=== PATIENT | female | born 1995 | race Hispanic/Latino ===

== ENCOUNTER 2021-01-07 20:52 | Inpatient (IN) | payer MEDICAID ==
[2021-01-07] MEDS ORDERED: LIDOCAINE (2%) 20 MG/1 ML VIAL 20 ML MDV INFILTRATI ONE (22:11)
[2021-01-07] MEDS ORDERED: MINERAL OIL 30 ML ORAL LIQD PO PRN (22:11)
[2021-01-07] MEDS ORDERED: ePHEDrine SULFATE 50 MG/1 ML INJ IV PRN (22:11)
[2021-01-07] MEDS ORDERED: TERBUTALINE 1 MG/1 ML INJ SUB-Q PRN (22:11)
[2021-01-07] MEDS ORDERED: ONDANSETRON 4 MG/2 ML INJ IV PRN (22:11)
[2021-01-07] MEDS ORDERED: BUTORPHANOL 2 MG/1 ML INJ IV PRN ×2 (22:11)
[2021-01-07 22:25] LABS: Hematocrit 28.8 % (30.3-42.9); Hemoglobin 9.2 gm/dl (10.1-14.3); Mean Corpuscular HGB Conc 32 % (30-34); Platelet Count 323 K/mm3 (140-440); Red Blood Count 4.29 M/mm3 (3.65-5.03); Red Cell Distribution Width 16.4 % (13.2-15.2)
[2021-01-07 22:28] LABS: Mean Corpuscular Volume 67 fl (79-97)
[2021-01-07] MEDS ORDERED: OXYTOCIN DRIP 30 UNITS/500 ML BAG IV SCH (23:00)
[2021-01-07] MEDS: LACTATED RINGERS 1,000 ML IV SCH (23:28)
[2021-01-07] MEDS ORDERED: fentaNYL-BUPIV 2 MCG/ML-0.125% 200 MCG/100 ML BAG EPIDURAL SCH (23:45)
[2021-01-07] MEDS ORDERED: NALOXONE 2 MG/2 ML INJ IV PRN (23:52)
[2021-01-07] MEDS ORDERED: diphenhydrAMINE 50 MG/ML VIAL IV PRN (23:52)
[2021-01-07] MEDS ORDERED: NalbUPHINE 10 MG/1 ML INJ IV PRN (23:52)
--- NOTE | 2021-01-08 00:17 | Anesthesia Consultation ---
Anesthesia Consult and Med Hx Date of service: 01/08/21 - Airway Anesthetic Teeth Evaluation: Chipped ROM Head & Neck: Adequate Mental/Hyoid Distance: Adequate Mallampati Class: Class I Intubation Access Assessment: Good - Pulmonary Exam CTA: Yes - Cardiac Exam Cardiac Exam: RRR - Pre-Operative Health Status ASA Pre-Surgery Classification: ASA2 Proposed Anesthetic Plan: Epidural - Pulmonary Hx Smoking: Yes Hx Asthma: Yes COPD: Yes Hx Pneumonia: No Hx Sleep Apnea: No - Cardiovascular System Hx Hypertension: No Hx Heart Attack/AMI: No Hx Angina: No - Central Nervous System Hx Psychiatric Problems: Yes (anxiety, depression, bipolar) - Gastrointestinal Hx Gastroesophageal Reflux Disease: No - Endocrine Hx End Stage Renal Disease: No Hx Insulin Dependent Diabetes: No Hx Non-Insulin Dependent Diabetes: No - Other Systems Hx Alcohol Use: No
--- NOTE | 2021-01-08 00:18 | Progress Note ---
Labor Epidural - Labor Epidural Start Time: 00:01 Stop Time: 00:11 Performed by:: CAROLINE SIERRA Procedure: Patient is requesting epidural for labor and pain. H&P, labs were reviewed. Patient IDed, H&P reviewed, all questions and concerns were answered, and consent was signed. Timeout was performed at bedside. Patient in sitting position. Sterile prep and drape was performed. 3ml of 1% lidocaine skin wheal at L[3]- L [4]. 18-gauge Jewel epidural needle was advanced to loss of resistance with air technique 4cm. Negative CSF negative blood. Epidural catheter advanced to [9] centimeters. [negative] Aspiration [negative] test dose. Sterile dressing applied. Patient tolerated procedure.
[2021-01-08] MEDS: LACTATED RINGERS 1,000 ML IV SCH (00:34)
[2021-01-08] MEDS ORDERED: LIDOCAINE MPF (2%) 20 MG/1 ML VIAL 5 ML ONE (02:09)
[2021-01-08] MEDS ORDERED: LIDOCAINE (2%) 20 MG/1 ML VIAL 20 ML MDV INFILTRATI ONE (02:12)
--- NOTE | 2021-01-08 02:59 | History and Physical Report ---
History of Present Illness Date of examination: 01/08/21 Date of admission: 01/07/21 22:11 Chief complaint: I am having contractions History of present illness: Patient is a 25-year-old 1 para 0 who presents to labor and delivery with complaint of contractions every 5 minutes. She was found to be 5 cm on presentation and decision was made to keep an admit. Patient's course has been complicated by recent moved to [place] with some initial care in [facility] however all records were retrieved. Patient has a history of hepatitis C and has been followed by [facility] for the same. She is GBS negative. 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 Family/Genetic History: none Social history: single - Obstetrical History Expected Date of Delivery: 01/13/21 Actual Gestation: 39 Week(s) 2 Day(s) : 2 Para: 0 Number of Living Children: 0 Medications and Allergies Allergies Allergy/AdvReac Type Severity Reaction Status Date / Time ciprofloxacin Allergy Hives Verified 01/07/21 22:00 Active Meds: Active Medications Butorphanol Tartrate (Butorphanol 2 Mg/1 Ml Inj) 2 mg IV Q2H PRN PRN Reason: Pain , Severe (7-10) Butorphanol Tartrate (Butorphanol 2 Mg/1 Ml Inj) 1 mg IV Q2H PRN PRN Reason: Pain, Moderate(4-6) LABOR PAIN Diphenhydramine HCl (Diphenhydramine 50 Mg/Ml Vial) 12.5 mg IV Q2H PRN PRN Reason: Itching Ephedrine Sulfate (Ephedrine Sulfate 50 Mg/1 Ml Inj) 10 mg IV Q2M PRN PRN Reason: Hypotension Lactated Ringer's (Lactated Ringers) 1,000 mls @ 125 mls/hr IV DIRECT ANTONY Last Admin: 01/08/21 00:34 Dose: 125 mls/hr Documented by: Oxytocin/Sodium Chloride (Pitocin/Ns 30 Unit/500ml) 30 units in 500 mls @ 40 mls/hr IV TITR ANTONY; Protocol Fentanyl/Bupivacaine/Sodium Chlor (Fentanyl-Bupiv 2 Mcg/Ml-0.125%) 200 mcg in 100 mls @ 12 mls/hr EPIDURAL TITR ANTONY; Protocol Last Admin: 01/08/21 00:31 Dose: 12 mls/hr Documented by: Mineral Oil (Mineral Oil 30 Ml Oral Liqd) 30 ml PO QHS PRN PRN Reason: Constipation Nalbuphine HCl (Nalbuphine 10 Mg/1 Ml Inj) 2.5 mg IV Q2H PRN PRN Reason: Itching Naloxone HCl (Naloxone 2 Mg/2 Ml Inj) 0.2 mg IV Q5M PRN PRN Reason: Respiratory sedation Ondansetron HCl (Ondansetron 4 Mg/2 Ml Inj) 4 mg IV Q8H PRN PRN Reason: Nausea And Vomiting Terbutaline Sulfate (Terbutaline 1 Mg/1 Ml Inj) 0.25 mg SUB-Q ONCE PRN PRN Reason: Hyperstimulation/Hypertonicity Review of Systems All systems: negative Eyes: deferred Ears, nose, mouth and throat: deferred Genitourinary: pelvic pain, contractions - Vital Signs Vital signs: Vital Signs Pulse BP 92 H 122/76 01/07/21 21:16 01/07/21 21:16 Temp Pulse Resp BP Pulse Ox 97.7 F 86 20 119/65 98 01/07/21 23:26 01/08/21 02:44 01/07/21 23:26 01/08/21 02:40 01/08/21 02:44 - Physical Exam Breasts: Cardiovascular: Regular rate, Normal S1, Normal S2 Lungs: Positive: Clear to auscultation, Normal air movement Abdomen: Positive: normal appearance, soft, normal bowel sounds. Negative: distention, tenderness Genitourinary (Female): Positive: normal external genitalia, normal perenium Vulva: both: normal Vagina: Positive: normal moisture. Negative: discharge Cervix: Negative: lesion, discharge Uterus: Positive: normal size, normal contour Adnexa: both: normal Anus/Rectum: Positive: normal perianal skin, heme negative. Negative: rectal mass, hemorrhoids Extremities: Deep Tendon Reflex Grade: Normal +2 - Obstetrical FHR: auscultation normal Cervical Dilatation: 5 Cervical Effacement Percentage: 90 station: -2 Uterine Contraction Pattern: Regular Uterine Tone Measurement Phase: Contraction Uterine Contraction Intensity: Strong/Firm Results Result Diagrams: 01/07/21 21:45 Abnormal lab results 01/07/21 Range/Units 21:45 WBC 11.3 H (4.5-11.0) K/mm3 Hgb 9.2 L (10.1-14.3) gm/dl Hct 28.8 L (30.3-42.9) % MCV 67 L (79-97) fl MCH 22 L (28-32) pg RDW 16.4 H (13.2-15.2) % All other labs normal. Assessment and Plan IUP at 39-2/7 weeks in active labor. Patient is GBS negative. Overall admit for labor. Patient had epidural when ready. Anticipate .
--- NOTE | 2021-01-08 03:02 | Procedure Note ---
OB Delivery Note - Delivery Date of Delivery: 01/08/21 Surgeon: MICHELA BLUM Estimated blood loss: 200cc - Vaginal Delivery presentation: vertex Delivery position: OA Intrapartum events: none Delivery induction: none Delivery augmentation: rupture of membranes Delivery monitor: external FHT, external uterine Route of delivery: Delivery placenta: spontaneous Delivery cord: nuchal cord, 3 umbilical vessels Episiotomy: none Delivery laceration: 2nd degree, vaginal side wall Delivery repair: vicryl Anesthesia: epidural Delivery comments: Viable female delivered over intact perineum at 2:02 AM after mother became complete and commenced pushing. A tight nuchal was reduced on the perineum. Infant has spontaneous lower cry. Her Apgars were 8 and 9. The infant was placed on the maternal abdomen and the cord was clamped and cut when done pulsating. The placenta was delivered spontaneously and intact with a three-vessel cord. The vaginal sidewall lacerations were repaired in a running locked fashion with 2-0 Vicryl. Likewise the perineal stitch was closed with 2- 0 Vicryl. For excellent hemostasis. The patient tolerated procedure well. - Infant A at 1 minute: 8 at 5 minutes: 9 Infant Gender: Female
[2021-01-08] MEDS ORDERED: ACETAMINOPHEN 325 MG TAB PO PRN (05:32)
[2021-01-08] MEDS ORDERED: LANOLIN/ZINC/DIMETHICONE (LANSINOH) 7 GM TP PRN (05:32)
[2021-01-08] MEDS ORDERED: PROMETHAZINE 25 MG RECT SUPP PR PRN (05:32)
[2021-01-08] MEDS ORDERED: MAGNESIUM HYDROXIDE (MOM) ORAL LIQD UDC PO PRN (05:32)
[2021-01-08] MEDS ORDERED: WITCH HAZEL/ GLYCERIN PAD TP PRN (05:32)
[2021-01-08] MEDS ORDERED: PROMETHAZINE 25 MG TAB PO PRN (05:32)
[2021-01-08] MEDS ORDERED: diphenhydrAMINE 25 MG CAP PO PRN (05:32)
[2021-01-08] MEDS ORDERED: HYDROcodone/ACETAMINOPHEN 5-325 MG TAB PO PRN (05:32)
[2021-01-08] MEDS ORDERED: ONDANSETRON 4 MG/2 ML INJ IV PRN (05:32)
[2021-01-08] MEDS: IBUPROFEN 600 MG TAB PO SCH ×3 (05:51→20:02)
[2021-01-08] MEDS: DOCUSATE SODIUM 100 MG CAP PO SCH ×2 (09:50→21:46)
[2021-01-08] MEDS: FERROUS SULFATE 325 MG TAB PO SCH ×2 (09:50→21:46)
[2021-01-08 15:20] LABS: Hemoglobin 9.5 gm/dl (10.1-14.3)
[2021-01-09] MEDS: IBUPROFEN 600 MG TAB PO SCH ×2 (05:34→12:20)
[2021-01-09] MEDS: FERROUS SULFATE 325 MG TAB PO SCH (10:33)
[2021-01-09] MEDS: DOCUSATE SODIUM 100 MG CAP PO SCH (10:33)
--- NOTE | 2021-01-09 11:20 | Progress Note ---
Assessment and Plan PPD 1 s/p . Doing well. Plan for discharge on today. Subjective - Subjective Date of service: 01/09/21 Interval history: Patient is a 25-year-old 1 para 0 who presents to labor and delivery with complaint of contractions every 5 minutes. She was found to be 5 cm on presentation and decision was made to keep an admit. Patient's course has been complicated by recent moved to [place] with some initial care in [facility] however all records were retrieved. Patient has a history of hepatitis C and has been followed by [facility] for the same. She is GBS negative. Patient reports: appetite normal, voiding normally, pain well controlled, ambulating normally : doing well Objective - Vital Signs Latest vital signs: Vital Signs Temp Pulse Resp BP Pulse Ox 01/09/21 08:04 97.9 F 61 20 106/68 97 01/09/21 05:34 20 01/09/21 01:10 98.0 F 69 115/68 98 01/08/21 20:02 20 01/08/21 17:01 97.8 F 74 18 111/63 98 01/08/21 12:25 97.8 F 77 18 113/72 96 Intake and Output 01/08/21 01/09/21 01/09/21 22:59 06:59 14:59 Intake Total 240 Balance 240 Intake: Oral 240 Other: Total, Intake Amount 240 # Voids Void 1 - Exam Cardiovascular: Present: Regular rate, Normal S1, Normal S2 Lungs: Present: Clear to auscultation, Normal air movement Abdomen: Present: normal appearance, soft Uterus: Present: normal Extremities: Present: normal Incision: Present: normal, dry, intact - Labs Labs: Abnormal lab results 01/08/21 Range/Units 14:58 Hgb 9.5 L (10.1-14.3) gm/dl Hct 28.0 L (30.3-42.9) %
--- NOTE | 2021-01-09 11:22 | Discharge Summary ---
Providers - Providers Date of Admission: 01/07/21 22:11 Date of discharge: 01/09/21 Attending physician: MICHELA BLUM Primary care physician: MICHELA BLUM Hospitalization Reason for admission: active labor Delivery: Laceration: vaginal side wall, 2nd degree complications: none Discharge diagnosis: IUP at term delivered baby: female Hospital course: unremarkable Condition at discharge: Good Disposition: DC-01 TO HOME OR SELFCARE Plan - Provider Discharge Summary Activity: routine, no sex for 6 weeks, no heavy lifting 4 weeks, no strenuous exercise Diet: routine Instructions: routine Additional instructions: [] Smoking cessation referral if applicable(refer to patient education folder for contact #) [] Refer to [facility]'s [facility] [address] Booklet Call your doctor immediately for: * Fever > 100.5 * Heavy vaginal bleeding ( >1 pad per hour) * Severe persistent headache * Shortness of breath * Reddened, hot, painful area to leg or breast * Drainage or odor from incision. * Keep incision clean and dry at all times and follow doctor's instructions regarding bathing/showering - Follow up plan Follow up: MICHELA BLUM MD [Primary Care Provider] - 6 Weeks
[2021-01-09 13:06] VITALS: BP 109/65
== END 2021-01-09 14:15 | disposition home or self-care (01) | DRG 775 ==
LOC: TRG 20:52 → APU 21:03 → TRG 22:11 → LD 22:11 → OB 01-08 05:05
PROVIDERS: ADMIT Obstetrics & Gynecology; ATTEND Obstetrics & Gynecology
PROC: 10E0XZZ Delivery of Products of Conception, External Approach (ICD-10-PCS; principal; 2021-01-08)
PROC: 0KQM0ZZ Repair Perineum Muscle, Open Approach (ICD-10-PCS; 2021-01-08)
PROC: 3E0R3BZ Introduction of Anesthetic Agent into Spinal Canal, Percutaneous Approach (ICD-10-PCS; 2021-01-08)
PROC: 00HU33Z Insertion of Infusion Device into Spinal Canal, Percutaneous Approach (ICD-10-PCS; 2021-01-08)
DX: O99.52 Diseases of the respiratory system complicating childbirth (principal); Z20.822 Contact with and (suspected) exposure to COVID-19; O70.1 Second degree perineal laceration during delivery; O99.344 Other mental disorders complicating childbirth; F41.9 Anxiety disorder, unspecified; F31.9 Bipolar disorder, unspecified; J45.909 Unspecified asthma, uncomplicated; J44.9 Chronic obstructive pulmonary disease, unspecified; Z3A.39 39 weeks gestation of pregnancy; Z37.0 Single live birth; Z88.1 Allergy status to other antibiotic agents
CPT/HCPCS: 36415; 59025; 85014; 85018; 85027; 86592; 86762; 86850; 86900; 86901; 87806; G0378; J2590; J7120; U0003